=== PATIENT | female | born 1960 | race Caucasian/White ===

== ENCOUNTER 2024-12-14 16:00 | Emergency (ER) | payer BC ==
[2024-12-14 16:15] VITALS: BP 115/64; PULSE 83; RESP 18; TEMP 98.2; BMI 24.3
== END 2024-12-14 17:33 | disposition home or self-care (01) ==
LOC: FER 16:00
DX: M71.21 Synovial cyst of popliteal space [Baker], right knee (principal); M25.561 Pain in right knee
CPT/HCPCS: 93971-TC-RT; 99284-25